=== PATIENT | male | born 2005 | race Hispanic/Latino ===

== ENCOUNTER 2023-09-13 01:47 | Emergency (ER) | payer OTHER, SELFPAY | END 2023-09-13 03:35 | disposition home or self-care (01) | LOC: ERS 01:47 | DX: S43.005A Unspecified dislocation of left shoulder joint, initial encounter (principal); F17.210 Nicotine dependence, cigarettes, uncomplicated; V86.06XA Driver of dirt bike or motor/cross bike injured in traffic accident, initial encounter | CPT/HCPCS: 23650 ==